=== PATIENT | female | born 1985 ===

== ENCOUNTER → 2019-07-04 | Emergency (ER) | payer OTHER ==
[~2019-07-04] VITALS: Ht 152.4 cm; Wt 52.2 kg
[~2019-07-04] MED LIST: ZYRTEC10 MG
== END | disposition left against medical advice (07) ==
LOC: ER 13:07
DX: S13.4XXA Sprain of ligaments of cervical spine, initial encounter (principal); S20.212A Contusion of left front wall of thorax, initial encounter; S60.211A Contusion of right wrist, initial encounter; V49.88XA Car occupant (driver) (passenger) injured in other specified transport accidents, initial encounter; Y93.89 Activity, other specified; Y92.413 State road as the place of occurrence of the external cause; Y99.8 Other external cause status

== ENCOUNTER 2023-03-15 19:45 | Emergency (ER) | payer OTHER ==
[~2023-03-15] VITALS: Ht 152.4 cm; Wt 53.1 kg
== END 2023-03-15 23:59 | disposition home or self-care (01) ==
LOC: ER 19:45
DX: K52.89 Other specified noninfective gastroenteritis and colitis (principal); Z91.018 Allergy to other foods